=== PATIENT | female | born 1995 | race Caucasian/White ===

== ENCOUNTER → 2019-06-29 | Outpatient (CLI) | payer SELFPAY | LOC: LABNPT 14:57 | PROVIDERS: ATTEND Family Medicine | DX: R30.9 Painful micturition, unspecified (principal) | CPT/HCPCS: 87088 ==

== ENCOUNTER 2019-09-10 12:19 | Inpatient (IN) | payer SELFPAY ==
[~2019-09-10] VITALS: Ht 165 cm; Wt 79.2 kg
[2019-09-10] VITALS (38 sets, daily range): BP systolic 119–160; BP diastolic 63–100
--- NOTE | 2019-09-10 11:53 | NUR ---
GERARD MILLER presented to unit via ambulatory from ED, accompanied by , with c/o DELIVERY. GERARD MILLER weighed, gowned, voided, and to bed. EFHM and TOCO applied, VS taken. GERARD MILLER oriented to bed controls, call light, TV, heat, and A/C controls.
--- NOTE | 2019-09-10 12:22 | NUR ---
Dr Mayfield notified of pt admission, of 3cms, 50%, uterine irritability, temp of 99.3, and initial BP of 131/97 and FHR with accelerations. Pt Protestant and had very little care and had refused labs and sono. Will full admit pt for pitocin induction at 41.[address] Mayfield text to inquire about pt pain level. Pain level 3-4 but tolerating well. Discussed epidural and pain medications. Pt will decide when she is more uncomfortable. 1814 Reported vag exam of 7cms, 80%, -2. Order for Fentanyl.
[2019-09-10] MEDS ORDERED: OXYTOCIN PRE-MIX DRIP 500 ML IV SCH (12:36)
[2019-09-10] MEDS ORDERED: AMPICILLIN FOR IV USE 2,000 MG in WATER (STERILE) FOR INJECTION 14.8 ML IV ONE (12:45)
[2019-09-10 13:16] LABS: BILIRUBIN,URINE NEGATIVE (NEGATIVE); CLARITY,URINE SL CLOUDY; COLOR,URINE YELLOW; GLUCOSE, URINE (UA) NEGATIVE (NEGATIVE); KETONES,URINE NEGATIVE (NEGATIVE); LEUKOCYTE ESTERASE ,URINE 3+ (NEGATIVE); NITRITE,URINE NEGATIVE (NEGATIVE); PROTEIN,URINE NEGATIVE (NEGATIVE)
[2019-09-10 13:27] LABS: BACTERIA,URINE MODERATE /HPF
[2019-09-10] MEDS: D5 LR IV SOLUTION 1,000 ML IV SCH ×2 (13:30→20:19)
--- OUTSIDE RECORDS SUMMARY | 2019-09-10 13:48 | XMS REPORT | Continuity of Care Document ---
Author Organization Unknown Address Unknown Phone Unavailable Allergies There is no data. Medications There is no data. Problems Date Dx Coded Attending Type Code Diagnosis Diagnosed By 06/30/2019 YESSENIA BONILLA, BUZZ Morelos Ot R30 .9 PAINFUL MICTURITION, UNSPECIFIED 07/01/2019 BUZZ CASAS MD Ot R30 .9 PAINFUL MICTURITION, UNSPECIFIED 09/10/2019 BUZZ CASAS MD Ot R30 .9 PAINFUL MICTURITION, UNSPECIFIED 09/10/2019 BUZZ CASAS MD Ot R30 .9 PAINFUL MICTURITION, UNSPECIFIED Procedures There is no data. Results Test Result Range Bacterial urine culture - 06/29/19 14:58 Bacterial urine culture 3 OR MORE NRG COLONY COUNT >100,000/ML NRG SUSCEPTIBILITY GRAM POSITIVES, SUGGESTING PROBABLE NRG MRSA SCREEN COLLECTION CONTAMINATION WITH SKIN CLARICE RA NRG RAPID ID NO SUSCEPTIBILITY PERFORMED N RG Complete urinalysis with reflex to cultu re - 09/10/19 12:15 Urine color determination YELLOW NRG Urine clarity determination SL CLOUDY N RG Urine pH measurement by test strip 7.0 5-9 Specific gravity of urine by test strip <= 1.016-1.022 Urine protein assay by test strip, semi-quantitative NEGATIVE NEGATIVE Urine glucose detection by automated test strip NE GATIVE NEGATIVE Erythrocytes detection in urine sediment by light micr oscopy NEGATIVE NEGATIVE Urine ketones detection by automated test strip NE GATIVE NEGATIVE Urine nitrite detection by test strip NEGATIVE NEGATIVE Urine total bilirubin detection by test strip NEGA TIVE NEGATIVE Urine urobilinogen measurement by automated test strip (mass/volume) 0.2 mg/dL < = 1.0 Urine leukocyte esterase detection by dipstick 3+ NEGATIVE Automated urine sediment erythrocyte cou nt by microscopy (number/high power field) NONE NRG Automated urine sediment leukocyte count by microscopy (number/high power field) [HPF] NRG Bacteria detection in urine sediment by light microsco py MODERATE NRG Squamous epithelial cells detection in u rine sediment by light microscopy 5-10 NRG Crystals detection in urine sediment by light microsco py NONE NRG Casts detection in urine sediment by light microscopy NONE NRG Mucus detection in urine sediment by light microscopy NEGATIVE NRG Complete urinalysis with reflex to culture YES NRG Encounters ACCT No. Visit Date/Time Discharge Status Pt. Type Provider Facility Loc./Unit Complaint [id number] 04/28/2018 14:15:00 04/28/2018 23:59: 59 CLS Outpatient [facility] [id number] 06/29/2019 14:57:00 020 14:57:00 CAN Outpatient BUZZ CASAS MD [facility] LABNPT URINARY PAIN [id number] 09/10/2019 12:19:[address] Inpatient BUZZ CASAS MD [facility] LDRP DELIVERY
[2019-09-10 14:01] LABS: BASOPHILS % (AUTO) 0 % (0-10); EOSINOPHILS # (AUTO) 0.1 10^3/uL (0.0-0.3); EOSINOPHILS % (AUTO) 1 % (0-10); HEMATOCRIT 37 % (35-52); HEMOGLOBIN 12.8 G/DL (11.5-16.0); LYMPHOCYTES # (AUTO) 2.2 X 10^3 (1.0-4.0); LYMPHOCYTES % (AUTO) 29 % (12-44); MEAN CORPUSCULAR HEMOGLOBIN 31 PG (25-34); MEAN CORPUSCULAR HGB CONC 34 G/DL (32-36); MEAN CORPUSCULAR VOLUME 90 FL (80-99); MEAN PLATELET VOLUME 10.5 FL (7.4-10.4); MONOCYTES # (AUTO) 0.5 X 10^3 (0.0-1.0); MONOCYTES % (AUTO) 6 % (0-12); NEUTROPHILS # (AUTO) 4.8 X 10^3 (1.8-7.8); NEUTROPHILS % (AUTO) 64 % (42-75); PLATELET COUNT 203 10^3/uL (130-400); RED CELL DISTRIBUTION WIDTH 13.4 % (10.0-14.5); WHITE BLOOD COUNT 7.6 10^3/uL (4.3-11.0)
[2019-09-10] MEDS: AMPICILLIN FOR IV USE 1,000 MG in WATER (STERILE) FOR INJECTION 7.4 ML IV SCH ×2 (18:06→21:55)
[2019-09-10] MEDS ORDERED: fentaNYL INJECTION 100 MCG/2 ML AMP ONE (18:19)
[2019-09-10] MEDS: fentaNYL INJECTION 100 MCG/2 ML AMP IVP PRN (18:26)
[2019-09-10] MEDS ORDERED: LIDOCAINE 1% INJ 20 ML 20 ML VIAL ONE (18:35)
[2019-09-10] MEDS: CATHETER FLUSH 10 ML SYR IV SCH (20:20)
[2019-09-11] VITALS (38 sets, daily range): BP systolic 115–172; BP diastolic 7–105
[2019-09-11] MEDS: fentaNYL INJECTION 100 MCG/2 ML AMP IVP PRN (00:50)
[2019-09-11] MEDS: CATHETER FLUSH 10 ML SYR IV SCH ×2 (01:27→06:00)
[2019-09-11] MEDS: AMPICILLIN FOR IV USE 1,000 MG in WATER (STERILE) FOR INJECTION 7.4 ML IV SCH (02:10)
[2019-09-11] MEDS ORDERED: fentaNYL 2 mcg/ml BUPIVA 0.125 100 ML ONE (04:19)
[2019-09-11] MEDS ORDERED: fentaNYL INJECTION 100 MCG/2 ML AMP ONE (04:46)
[2019-09-11] MEDS ORDERED: BUPIVACAINE 0.25% 30 ML (SENSORCAINE) VIAL ONE (04:46)
[2019-09-11] MEDS ORDERED: LACTATED RINGERS 1,000 ML IV SCH (05:18)
[2019-09-11] MEDS ORDERED: METOCLOPRAMIDE INJ 10 MG/2 ML (REGLAN) IV PRN (05:30)
[2019-09-11] MEDS ORDERED: EPIDURAL (fentaNYL 2 MCG/ML BUPIVA 0.125%)100 ML BAG EPI PRN (05:30)
[2019-09-11] MEDS ORDERED: diphenhydrAMINE 50 MG/ML INJ (BENADRYL) IV PRN (05:30)
[2019-09-11] MEDS ORDERED: NALOXONE 0.4 MG/ML 1 ML (NARCAN) VIAL IV PRN ×2 (05:30)
[2019-09-11] MEDS ORDERED: ONDANSETRON 4 MG/2 ML (SDV) Z0FRAN IV PRN (05:30)
--- NOTE | 2019-09-11 07:00 | NUR ---
Placenta out and fundus firm U/2, perineal repair by Dr Myafield at this time.
--- NOTE | 2019-09-11 07:20 | NUR ---
Fundus firm U/2 perineal cleaned and pad placed. Pt assisted to a sitting position. Epidural cath removed and Iv Pitocin at WO.
--- NOTE | 2019-09-11 07:25 | History & Physical-OB ---
OB - Chief Complaint & HPI Date/Time Date of Admission: Date of Admission: Sep 10, 2019 at 12:19 Date seen by a Provider: Sep 10, 2019 Time Seen by a Provider: 21:00 Chief Complaint/History OB-Reason for Admission/Chief: Induction of Labor Hx : 1 Hx Para: 0 Expected Date of Delivery: Aug 31, 2019 Gestational Age in Weeks: 41 Gestational Age in Days: 3 Indication for induction: post dates Admission Nurse Assessment Rev: Yes Allergies and Home Medications Allergies Coded Allergies: No Known Drug Allergies (Unverified , 09/10/19) Patient Home Medication List Home Medication List Reviewed: Yes OB - History Hx of Present Care: No Ultrasounds: No ultrasounds Obstetrical Complications: None Medical Complications: None Patient Past Medical History previously healthy Social History/Family History Recent Infectious Disease Expo: No Alcohol Use: Denies Use Recreational Drug Use: No OB - Admission Exam Physical Exam Vitals: Vital Signs 09/10/19 09/10/19 09/11/19 16:15 18:00 03:45 Temp 37.0 Pulse 90 Resp 20 B/P (MAP) 141/77 (98) O2 Delivery Room Air HEENT: NCAT Heart: Rhythm Normal Lungs: Clear Abdomen: Gravid Extremities: Normal Reflexes: Normal Cervical Dilatation: 8cm Effacement: 100% Station: -1 Membranes: Intact Amniotic Fluid: Thin Meconium Heart Rate: 130's Accelerations: Accelerations Present Decelerations: No Decelerations Short Term Variability: Present Alf Variability: Average (6-25) Contractions on Admission: >10 Minutes Apart Labs Laboratory Tests Test 09/10/19 12:15 09/10/19 13:40 Range/Units Urine Color YELLOW Urine Clarity SL CLOUDY Urine pH 7.0 5-9 Urine Specific [place] <=1.005 1.016-1.022 Urine Protein NEGATIVE NEGATIVE Urine Glucose (UA) NEGATIVE NEGATIVE Urine Ketones NEGATIVE NEGATIVE Urine Nitrite NEGATIVE NEGATIVE Urine Bilirubin NEGATIVE NEGATIVE Urine Urobilinogen 0.2 < = 1.0 MG/DL Urine Leukocyte Esterase 3+ H NEGATIVE Urine RBC (Auto) NEGATIVE NEGATIVE Urine RBC NONE /HPF Urine WBC 5-10 H /HPF Urine Squamous Epithelial Cells 5-10 /HPF Urine Crystals NONE /LPF Urine Bacteria MODERATE H /HPF Urine Casts NONE /LPF Urine Mucus NEGATIVE /LPF Urine Culture Indicated YES White Blood Count 7.6 4.3-11.0 10^3/uL Red Blood Count 4.14 L 4.35-5.85 10^6/uL Hemoglobin 12.8 11.5-16.0 G/DL Hematocrit 37 35-52 % Mean Corpuscular Volume 90 80-99 FL Mean Corpuscular Hemoglobin 31 25-34 PG Mean Corpuscular Hemoglobin Concent 34 32-36 G/DL Red Cell Distribution Width 13.4 10.0-14.5 % Platelet Count 203 130-400 10^3/uL Mean Platelet Volume 10.5 H 7.4-10.4 FL Neutrophils (%) (Auto) 64 42-75 % Lymphocytes (%) (Auto) 29 12-44 % Monocytes (%) (Auto) 6 0-12 % Eosinophils (%) (Auto) 1 0-10 % Basophils (%) (Auto) 0 0-10 % Neutrophils # (Auto) 4.8 1.8-7.8 X 10^3 Lymphocytes # (Auto) 2.2 1.0-4.0 X 10^3 Monocytes # (Auto) 0.5 0.0-1.0 X 10^3 Eosinophils # (Auto) 0.1 0.0-0.3 10^3/uL Basophils # (Auto) 0.0 0.0-0.1 10^3/uL OB - Assessment/Plan/Diagnosis Assessment Assessment: induction of labor Admission Dx Induction of labor at 41 3/7 wga Admission Status: Inpatient Order (span 2 midnights) Reason for Inpatient Admission: Induction of labor Plan Plan: Induction Induction Method: AROM Other Plan Ampicillin for unknown GBS. Epidural for pain when requested. Pitocin. AROM thin meconium. BUZZ CASAS MD Sep 11, 2019 07:24
--- NOTE | 2019-09-11 07:35 | NUR ---
VS monitored, pt being advised on infants condition. Fundus firm U/2 minimal lochia noted.
--- NOTE | 2019-09-11 07:36 | OB Labor & Delivery Record ---
Vag Delivery Note Vag Delivery Note Date of Delivery: 09/11/19 Preoperative Diagnosis: Colette Howard is a (24 /Para 1 / 0, Gestational Age (wks)41with [] Postoperative Diagnosis: Same Surgeon: BUZZ CASAS Coin Purse Assembler: [none] Anesthesia: [epidural] Delivery Type: [] Findings: [] Viable [male] infant, apgars [1,1,3]. Lacerations: Intact placenta with 3 vessel cord. No nuchal cord, body cord or shoulder dystocia Estimated Blood Loss: [350] ml Complications: None Condition: Stable Description of Procedure: The patient is a 24 year old female who presented [for induction of labor]. She was admitted and informed consent was obtained. Her labor course was remarkable for [nothing] She progressed to complete dilatation and began to push. She was then set up for delivery. The infant's head was delivered atraumatically in the [OA] position. The shoulders and remainder of the infant's body were then delivered without difficulty. Upon delivery, the head was held below the level of the perineum and the mouth and nares were bulb suctioned. The cord was doubly clamped and cut after 60 seconds on maternal abdomen. An intact placenta with 3-vessel cord delivered via Jessi and there was found to be minimal bleeding.~ Vigorous fundal massage was performed and the fundus was found to be firm. IV oxytocin was given. Examination of the vagina and perineum revealed a [2nd degree perineal] laceration repaired in the usual fashion with 3-0 vicryl suture. Following the repair, sponge, instrument and needle counts were correct. Mom and baby were both in stable condition in the labor suite. Vitals - Labs Vital Signs - I&O Vital Signs Date Time Temp Pulse Resp B/P (MAP) Pulse Ox O2 Delivery O2 Flow Rate FiO2 09/11/19 03:45 37.0 90 141/77 (98) 09/11/19 03:30 82 143/78 (99) 09/11/19 03:15 91 154/96 (115) 09/11/19 03:00 94 147/93 (111) 09/11/19 02:45 94 147/93 (111) 09/11/19 02:30 97 134/94 (107) 09/11/19 02:15 101 172/100 (124) 09/11/19 02:00 95 137/95 (109) 09/11/19 01:45 83 128/76 (93) 09/11/19 01:30 36.7 80 133/79 (97) 09/11/19 01:15 82 125/79 (94) 09/11/19 01:00 74 136/74 (94) 09/11/19 00:45 37.2 88 133/79 (97) 09/11/19 00:30 82 131/84 (100) 09/11/19 00:15 93 139/105 (116) 09/11/19 00:00 76 125/79 (94) 09/10/19 23:45 80 125/78 (94) 09/10/19 23:30 83 132/77 (95) 09/10/19 23:15 83 132/88 (103) 09/10/19 23:00 83 132/69 (90) 09/10/19 22:45 37.1 83 132/69 (90) 09/10/19 22:30 74 149/88 (108) 09/10/19 22:15 82 139/79 (99) 09/10/19 22:00 85 125/78 (94) 09/10/19 21:45 75 126/74 (91) 09/10/19 21:30 37.5 73 127/82 (97) 09/10/19 21:15 83 139/79 (99) 09/10/19 21:00 77 119/67 (84) 09/10/19 20:45 82 121/63 (82) 09/10/19 20:30 70 128/87 (101) 09/10/19 20:15 79 130/86 (101) 09/10/19 20:00 69 127/84 (98) 09/10/19 19:45 36.4 71 130/85 (100) 09/10/19 19:30 75 134/85 (101) 09/10/19 19:15 80 140/86 (104) 09/10/19 19:00 97 132/89 (103) 09/10/19 18:45 74 139/91 (107) 09/10/19 18:15 74 148/95 (112) 09/10/19 18:00 36.8 Room Air 09/10/19 17:45 68 156/96 (116) Room Air 09/10/19 17:30 75 158/97 (117) Room Air 09/10/19 17:15 75 148/95 (112) Room Air 09/10/19 17:00 71 143/90 (107) 09/10/19 16:15 76 20 160/100 (120) 09/10/19 16:00 76 148/94 (112) Room Air 09/10/19 15:45 78 135/85 (102) Room Air 09/10/19 15:30 72 127/85 (99) Room Air 09/10/19 15:15 97 146/98 (114) Room Air 09/10/19 15:00 79 124/93 (103) Room Air 09/10/19 14:45 76 16 128/95 (106) Room Air 09/10/19 14:15 81 129/96 (107) Room Air 09/10/19 14:00 86 135/91 (106) Room Air 09/10/19 13:45 37.3 73 136/94 (108) Room Air 09/10/19 13:15 75 127/82 (97) 09/10/19 12:10 37.3 96 16 98 Room Air 09/10/19 12:10 37.3 96 16 131/97 (108) 97 Room Air I & O 09/11/19 07:00 Intake Total 1022.2 ml Balance 1022.2 ml Labs Laboratory Tests 09/10/19 12:15: Urine Color YELLOW, Urine Clarity SL CLOUDY, Urine pH 7.0, Urine Specific Gravi [place] <=1.005, Urine Protein NEGATIVE, Urine Glucose (UA) NEGATIVE, Urine Ketones NEGATIVE, Urine Nitrite NEGATIVE, Urine Bilirubin NEGATIVE, Urine Urobilinogen 0.2, Urine Leukocyte Esterase 3+H, Urine RBC (Auto) NEGATIVE, Urine RBC NONE, Urine WBC 5-10H, Urine Squamous Epithelial Cells 5-10, Urine Crystals NONE, Urine Bacteria MODERATEH, Urine Casts NONE, Urine Mucus NEGATIVE, Urine Culture Indicated YES 09/10/19 13:40: White Blood Count 7.6, Red Blood Count 4.14L, Hemoglobin 12.8, Hematocrit 37, Mean Corpuscular Volume 90, Mean Corpuscular Hemoglobin 31, Mean Corpuscular Hemoglobin Concent 34, Red Cell Distribution Width 13.4, Platelet Count 203, Mean Platelet Volume 10.5H, Neutrophils (%) (Auto) 64, Lymphocytes (%) (Auto) 29, Monocytes (%) (Auto) 6, Eosinophils (%) (Auto) 1, Basophils (%) (Auto) 0, Neutrophils # (Auto) 4.8, Lymphocytes # (Auto) 2.2, Monocytes # (Auto) 0.5, Eosinophils # (Auto) 0.1, Basophils # (Auto) 0.0 BUZZ CASAS MD Sep 11, 2019 07:36
[2019-09-11] MEDS ORDERED: OXYTOCIN PRE-MIX DRIP 500 ML IV SCH (07:37)
[2019-09-11] MEDS ORDERED: IBUP-844 PO (07:44)
--- NOTE | 2019-09-11 07:47 | Discharge Summary ---
Discharge Inst-Women's Serv Reconcile Patient Problems Problems Reviewed?: Yes Depart Medications New, Converted or Re-Newed RX: RX on Chart Follow Up/Instructions Goal/Follow Up: [address] Casas Activity Activity: Activity as Tolerated Driving Instructions: You May Drive NO SMOKING: NO SMOKING Nothing Inside Vagina: No Douching, No [place], No Tampons Diet Discharge Diet: No Restrictions Symptoms to Report to : Fever Over 101 Degrees F, Vaginal Bleeding Increase For Any Problems or Questions: Go to Emergency Room BUZZ CASAS MD Sep 11, 2019 07:47
--- NOTE | 2019-09-11 07:50 | NUR ---
VS monitored and fundus massage U/1 to U/2 with moderate lochia. Pt breakfast at bedside.
--- NOTE | 2019-09-11 08:15 | NUR ---
Fundus firm U/2 with moderate rubra lochia noted. Pericare completed and clean pad and panties applied. Patient up to wheelchair and to nursery to see infant.
--- NOTE | 2019-09-11 08:30 | NUR ---
Patient back to room from nursery. Patient ambulated to restroom. + void noted. Pericare performed/demonstrated for patient. Upon standing up from the commode and pulling her underwear up, patient became light headed and fainted. This RN caught the patient and eased her down the the floor. Emergency cord pulled. Patient woke spontaneously within 15 seconds of going down the floor. Lucy RN and Olga RN to bathroom. Patient assisted up to wheelchair and back to bed at this time.
[2019-09-11] MEDS ORDERED: DOCUSATE SODIUM 100 MG (COLACE) CAP PO SCH (09:00)
[2019-09-11] MEDS: WITCH HAZEL(TUCKS) 40 EA JAR TOP PRN ×2 (09:15→12:50)
[2019-09-11] MEDS: BENZOCAINE/MENTHOL (DERMOPLAST) 60 ML CAN TP PRN ×2 (09:15→12:50)
--- NOTE | 2019-09-11 09:36 | NUR ---
Vital signs obtained. Parents being requested in nursery to discuss care. Patient assisted up to wheelchair and taken to nursery at this time.
--- NOTE | 2019-09-11 09:43 | NUR ---
Infant extubated and placed in patients arms.
--- NOTE | 2019-09-11 09:47 | NUR ---
Dr. Hanks calls "time of ."
--- NOTE | 2019-09-11 09:50 | NUR ---
Patient and SO back to patient's room per their request. Fundus firm U/2, moderate rubra lochia noted. Pericare completed. Dr. Mayfield notified of patient's bleeding, new orders received.
[2019-09-11] MEDS ORDERED: MISOPROSTOL 200 MCG (CYTOTEC) TABLET ONE (09:53)
--- NOTE | 2019-09-11 09:57 | NUR ---
Cytotec 800mcg per rectum given at this time.
[2019-09-11] MEDS ORDERED: MISOPROSTOL 200 MCG (CYTOTEC) TABLET PR ONE (10:00)
--- NOTE | 2019-09-11 10:20 | NUR ---
Grandparents arrived at this time and escorted to room 318.
[2019-09-11] MEDS ORDERED: IBUPROFEN 600 MG (MOTRIN) TAB PO SCH (12:00)
--- NOTE | 2019-09-11 12:00 | NUR ---
Patient dressed and sitting in recliner. Patient to bed at this time. Fundus firm U/2 with small rubra lochia noted. No clots. Pericare completed and plan of care reviewed with patient. Patient and family desire discharge as soon as possible. Reviewed concerns for bleeding and wanting to monitor patient for a few more hours to watch her bleeding. Patient and family verbalize understanding.
--- NOTE | 2019-09-11 12:14 | Anesthesia-Regional Post-Op ---
Regional Patient Condition Mental Status: Alert, Oriented x3 Circulation: Same as Pre-Op Headache: Absent Sensation: Full Recovery Motor Block: Absent Post Op Complications Complications None Follow Up Care/Instructions Patient Instructions None needed. Anesthesia/Patient Condition Patient is doing well, no complaints, stable vital signs, no apparent adverse anesthesia problems. No complications reported per nursing. LEEROY SERRANO CRNA Sep 11, 2019 12:14
--- NOTE | 2019-09-11 12:49 | NUR ---
Patient sitting in recliner. Scheduled Motrin PO given.
[2019-09-11] MEDS ORDERED: CATHETER FLUSH 10 ML SYR IV SCH (14:00)
[2019-09-11] MEDS ORDERED: ACETAMINOPHEN 500 MG TAB (TYLENOL) PO SCH (14:00)
--- NOTE | 2019-09-11 14:36 | NUR ---
Discharge instructions and medications reviewed with patient both written and verbally. Patient verbalizes understanding and questions answered. Hep lock DC'd at this time, tip intact.
--- NOTE | 2019-09-11 15:00 | NUR ---
Patient discharged at this time via wheelchair and accompanied down to awaiting private vehicle by this RN. No signs or symptoms of distress noted. Patient and family discharged with . Release of body on chart.
== END 2019-09-11 15:00 | disposition home or self-care (01) | DRG 807 ==
LOC: LDRP 12:19
PROVIDERS: ADMIT Family Medicine; ATTEND Family Medicine
PROC: 10E0XZZ Delivery of Products of Conception, External Approach (ICD-10-PCS; principal; 2019-09-11)
PROC: 0KQM0ZZ Repair Perineum Muscle, Open Approach (ICD-10-PCS; 2019-09-11)
PROC: 10907ZC Drainage of Amniotic Fluid, Therapeutic from Products of Conception, Via Natural or Artificial Opening (ICD-10-PCS; 2019-09-11)
DX: O48.0 Post-term pregnancy (principal); Z37.0 Single live birth; O70.1 Second degree perineal laceration during delivery; Z3A.41 41 weeks gestation of pregnancy
CPT/HCPCS: 36415; 81000; 85025; 86703; 86762; 86780; 86850; 86900; 86901; 87077; 87088; 87340

== ENCOUNTER → 2020-06-02 | Outpatient (CLI) | payer OTHER ==
[~2020-06-02] MED LIST: IBUP-844 PO
== END ==
LOC: LABNPT 15:00
PROVIDERS: ATTEND Family Medicine
DX: Z34.92 Encounter for supervision of normal pregnancy, unspecified, second trimester (principal); Z3A.00 Weeks of gestation of pregnancy not specified
CPT/HCPCS: 87088

== ENCOUNTER 2020-10-24 09:30 | Inpatient (IN) | payer SELFPAY ==
[2020-10-24] VITALS (11 sets, daily range): BP systolic 98–121; BP diastolic 53–76
--- NOTE | 2020-10-24 10:03 | History & Physical-OB ---
OB - Chief Complaint & HPI Date/Time Date of Admission: Date of Admission: Oct 24, 2020 at 09:30 Date seen by a Provider: Oct 24, 2020 Time Seen by a Provider: 09:15 Chief Complaint/History OB-Reason for Admission/Chief: Onset of Labor Hx : 2 Hx Para: 0 Expected Date of Delivery: Oct 25, 2020 Gestational Age in Weeks: 39 Gestational Age in Days: 6 History of Labs No care Allergies and Home Medications Allergies Coded Allergies: No Known Drug Allergies (Unverified , 09/10/19) Home Medications Ibuprofen 600 Mg Tablet, 600 MG PO Q6HR Prescribed by: BUZZ CASAS on 09/11/19 0744 Patient Home Medication List Home Medication List Reviewed: Yes OB - History Hx of Present Care: No Ultrasounds: No ultrasounds Obstetrical Complications: None Medical Complications: None Obstetrical History Hx : 2 Hx # Term Pregnancies: 1 Number of Living Children: 0 Delivery History Hx Distress: Yes (Diaphramtic Hernia lived for 3 hrs ) Patient Past Medical History None Social History/Family History Alcohol Use: Denies Use Recreational Drug Use: No Smoking Cessation: Never smoker Immunizations Rubella: unknown RPR/VDRL: Unknown GBS Status: Unknown HBsAG: Unknown OB - Admission Exam Physical Exam HEENT: NCAT Heart: Rhythm Normal Lungs: Clear Abdomen: Gravid Cervical Dilatation: 10cm Effacement: 100% Station: +2 Membranes: Intact Heart Rate: 140's Accelerations: Accelerations Present Decelerations: Early Decelerations Short Term Variability: Present Contractions on Admission: < 5 Minutes Apart Intensity: Firm OB - Assessment/Plan/Diagnosis Assessment Assessment: active labor Admission Dx Third Trimester 39 week gestation No care Admission Status: Inpatient Order (span 2 midnights) Reason for Inpatient Admission: Labor Plan Other Plan 25 yo @ 39.6 wga per LMP Plan - Expectant management - AROM RAHUL GRAY MD Oct 24, 2020 10:03
--- NOTE | 2020-10-24 10:05 | OB Labor & Delivery Record ---
Vag Delivery Note Vag Delivery Note Date of Delivery: 10/24/20 Preoperative Diagnosis: Colette estrada a (25 /Para 2/0 @ 39.6 per LMP presented in active labor Postoperative Diagnosis: Same Surgeon: RAHUL GRAY Finishing Room Operator: None Anesthesia: None Delivery Type: @ 0939 Findings: Viable female , apgars 7/9, weight 8#0, 3629 grams Lacerations: None Intact placenta with 3 vessel cord. No nuchal cord, body cord or shoulder dystocia Cytotec 800 mcg placed for hemorrhage prophylaxis Estimated Blood Loss: 300 ml Complications: None Condition: Stable Description of Procedure: The patient is a 25 year old female who presented in active labor complete. She was admitted and informed consent was obtained. Her labor course was unremarkable. She progressed to complete dilatation and began to push. She was then set up for delivery. The infant's head was delivered atraumatically in the MIKE position. The shoulders and remainder of the 's body were then delivered without difficulty. Upon delivery, the head was held below the level of the perineum and the mouth and nares were bulb suctioned. The cord was doubly clamped and cut by maternal grandmother and the was handed off to the pediatric staff due to thin meconium. An intact placenta with 3-vessel cord delivered via Jessi and there was found to be minimal bleeding.~ Vigorous fundal massage was performed and the fundus was found to be firm. IV oxytocin was given. Examination of the vagina and perineum revealed no lacerations that require repair. Following the repair, sponge, instrument and needle counts were correct. Mom and baby were both in stable condition in the labor suite. RAHUL GRAY MD Oct 24, 2020 10:05
[2020-10-24] MEDS ORDERED: TETANUS,DIPTH,PERTUSS P/F (BOOSTRIX) 0.5 ML VIAL IM ONE (10:15)
[2020-10-24] MEDS: OXYTOCIN PRE-MIX DRIP 500 ML IV SCH ×2 (10:15→10:46)
[2020-10-24] MEDS ORDERED: BENZOCAINE/MENTHOL (DERMOPLAST) 56 ML CAN TP PRN (10:15)
[2020-10-24] MEDS ORDERED: WITCH HAZEL(TUCKS) 40 EA JAR TOP PRN (10:15)
[2020-10-24] MEDS ORDERED: MEASLES,MUMPS,RUBELLA 1 EA INJ SQ ONE (10:15)
[2020-10-24 10:50] LABS: BASOPHILS % (AUTO) 0 % (0-10); EOSINOPHILS % (AUTO) 0 % (0-10); HEMATOCRIT 45 % (35-52); HEMOGLOBIN 14.8 g/dL (11.5-16.0); LYMPHOCYTES # (AUTO) 0.9 10^3/uL (1.0-4.0); LYMPHOCYTES % (AUTO) 7 % (12-44); MEAN CORPUSCULAR HEMOGLOBIN 32 pg (25-34); MEAN CORPUSCULAR HGB CONC 33 g/dL (32-36); MEAN CORPUSCULAR VOLUME 95 fL (80-99); MEAN PLATELET VOLUME 10.8 fL (9.0-12.2); MONOCYTES # (AUTO) 0.4 10^3/uL (0.0-1.0); MONOCYTES % (AUTO) 3 % (0-12); NEUTROPHILS % (AUTO) 89 % (42-75); PLATELET COUNT 125 10^3/uL (130-400); WHITE BLOOD COUNT 13.5 10^3/uL (4.3-11.0)
[2020-10-24 11:04] LABS: LYMPHOCYTES % (MANUAL) 11 %; MONOCYTES % (MANUAL) 5 %; NEUTROPHILS % (MANUAL) 84 %; RBC MORPH NORMAL
[2020-10-24] MEDS: ACETAMINOPHEN 500 MG TAB (TYLENOL) PO SCH ×3 (11:50→19:45)
[2020-10-24] MEDS: CATHETER FLUSH 10 ML SYR IV SCH ×2 (14:00→23:45)
[2020-10-24] MEDS: IBUPROFEN 600 MG (MOTRIN) TAB PO SCH ×3 (17:35→23:50)
[2020-10-24] MEDS ORDERED: DOCUSATE SODIUM 100 MG (COLACE) CAP PO SCH (21:00)
[2020-10-25 04:45] VITALS: BP 113/75
[2020-10-25] MEDS: ACETAMINOPHEN 500 MG TAB (TYLENOL) PO SCH (05:10)
[2020-10-25] MEDS: IBUPROFEN 600 MG (MOTRIN) TAB PO SCH (05:10)
[2020-10-25 06:36] LABS: BASOPHILS % (AUTO) 0 % (0-10); EOSINOPHILS # (AUTO) 0.1 10^3/uL (0.0-0.3); EOSINOPHILS % (AUTO) 1 % (0-10); HEMATOCRIT 36 % (35-52); LYMPHOCYTES # (AUTO) 2.6 10^3/uL (1.0-4.0); LYMPHOCYTES % (AUTO) 24 % (12-44); MEAN CORPUSCULAR HEMOGLOBIN 32 pg (25-34); MEAN CORPUSCULAR HGB CONC 33 g/dL (32-36); MEAN CORPUSCULAR VOLUME 95 fL (80-99); MEAN PLATELET VOLUME 10.3 fL (9.0-12.2); MONOCYTES # (AUTO) 0.9 10^3/uL (0.0-1.0); MONOCYTES % (AUTO) 8 % (0-12); NEUTROPHILS # (AUTO) 7.2 10^3/uL (1.8-7.8); NEUTROPHILS % (AUTO) 66 % (42-75); PLATELET COUNT 175 10^3/uL (130-400); WHITE BLOOD COUNT 10.9 10^3/uL (4.3-11.0)
[2020-10-25 08:40] VITALS: BP 105/65
[2020-10-25 09:24] VITALS: BP 105/65
--- NOTE | 2020-10-25 09:25 | Discharge Summary ---
Diagnosis/Chief Complaint Date of Admission Oct 24, 2020 at 09:30 Date of Discharge 10/25/20 Admission Diagnosis Admission Diagnosis Third Trimester 39 week gestation No care Discharge Diagnosis Delivery of term female No care Discharge Summary-Simple/Stand Procedures Discharge Physical Examination Allergies: Coded Allergies: No Known Drug Allergies (Unverified , 09/10/19) Vitals & I&Os Vital Sign - Last 12Hours Date Time Temp Pulse Resp B/P (MAP) Pulse Ox O2 Delivery O2 Flow Rate FiO2 10/25/20 09:24 36.9 71 16 105/65 96 10/25/20 04:45 Room Air General Appearance: Alert, Oriented X3, Cooperative, No Acute Distress HEENT: Mucous Memb Moist/[place] Respiratory: Clear to Auscultation, Normal Air Movement Cardiovascular: Regular Rate, No Murmurs Abdominal: Normal Bowel Sounds, Soft, No Tenderness, No Masses, Other (fundus firm and below umbilicus) Extremities: No Edema, No Tenderness/Swelling Skin: No Rashes Neuro: Normal Speech Psych/Mental Status: Mental Status NL, Mood NL Hospital Course Was the Problem List Reviewed?: Yes See final discharge diagnosis. Discussion & Recommendations 25 yo G2 now P2 mother that delivered term female via uncomplicated . Previous with diaphramtic hernia and passed 3 hrs after . Discharge Condition at discharge stable Instructions to patient/family Please see electronic discharge instructions given to patient. Discharge Medications Reviewed and agree with Discharge Medication list on patient's Discharge Instruction sheet RAHUL GRAY MD Oct 25, 2020 09:25
--- NOTE | 2020-10-25 09:27 | Discharge Summary ---
Discharge Inst-Women's Serv Reconcile Patient Problems Problems Reviewed?: Yes Depart Medications New, Converted or Re-Newed RX: Other (No new meds) Continued Medications: Ibuprofen (Ibu) 600 Mg Tablet 600 MG PO Q6HR, #30 TAB 0 Refills Follow Up/Instructions Goal/Follow Up: [address] Mayfield Activity Activity: Activity as Tolerated Diet Discharge Diet: No Restrictions Symptoms to Report to : Swelling Increased, Bleeding Excessive, Fever Over 101 Degrees F For Any Problems or Questions: Contact Your Physician RAHUL GRAY MD Oct 25, 2020 09:27
== END 2020-10-25 12:15 | disposition home or self-care (01) | DRG 807 ==
LOC: LDRP 09:30
PROVIDERS: ADMIT Family Medicine; ATTEND Family Medicine
PROC: 10E0XZZ Delivery of Products of Conception, External Approach (ICD-10-PCS; principal; 2020-10-24)
DX: O77.0 Labor and delivery complicated by meconium in amniotic fluid (principal); Z37.0 Single live birth; Z3A.39 39 weeks gestation of pregnancy
CPT/HCPCS: 36415; 85007; 85025; 85027; 86703; 86762; 86780; 86850; 86900; 86901; 87340; 99212